=== PATIENT | male | born 1965 | race Caucasian/White ===

== ENCOUNTER 2017-09-24 08:16 | Day surgery (SDC) | payer OTHER ==
[2017-09-21 08:25] VITALS: BMI 24.3
--- NOTE | 2017-09-24 06:47 | HP ---
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 The patient subsequently underwent inductive chemotherapy as well as full course radiation to the primary lesion as well as the right neck. He has done well and has had no somatic complaints. Recent examination in the office was negative for any neck masses. It is recommended the patient be returned to surgery for a re-examination and recheck, and also a re-biopsy of the primary lesion site. PAST MEDICAL HISTORY: Reveals he has no known allergies to medications. MEDICATIONS: Current medications include losartan and Claritin. REVIEW OF SYSTEMS: Review of systems is positive for hypertension and the remainder of the review of systems is essentially unremarkable. PREVIOUS SURGERIES: Include a suspension microlaryngoscopy x2, triple endoscopy, colonoscopy, tonsillectomy, adenoidectomy, excision of mucocele of the right lower lip and left herniorrhaphy. The patient is also on Protonix for GERD (gastroesophageal reflux disorder). PHYSICAL EXAMINATION: The patient is a very pleasant 52-year-old male who was alert and cooperative. HEENT EXAMINATION: Patient is normocephalic. Tympanic membranes normal. Middle ear space is free of any fluid or infection. Pupils equal, round, react to light and accommodation. Extraocular movements within normal limits. Intranasal examination reveals moderate to severe septal deviation with compensatory hypertrophy of inferior turbinates and a moderate amount of mucus on the mucous membranes and draining down the posterior pharynx. Examination of the oropharynx: Palpation of the neck and cranial nerves 2 through 12 are all within normal limits. CHEST AND CARDIOVASCULAR: Both lung aguilera are clear to percussion and auscultation. The patient is in regular sinus rhythm. S1 and S2 are present without evidence of any murmurs S3s or S4s. Peripheral pulses are bilaterally symmetrical and within normal limits. ABDOMEN: There is no evidence the masses megaly or tenderness. The abdomen is soft. Skin is unremarkable. MUSCULOSKELETAL AND NEUROLOGICAL: Within normal limits. Rectal exam is deferred at this time because the patient has this done on a regular basis at his family physician's office. The remainder of physical exam is unremarkable. IMPRESSION: Squamous cell carcinoma of the right true vocal cord, status post full course radiation. PLAN: The patient is scheduled undergo a suspension microlaryngoscopy and possible biopsy of the right true vocal cord under anesthesia in the a.m. Attention RNs in the pre-surgical area: I have not ordered any pre-surgical prophylactic antibiotics for this patient. If the pharmacy department sends any pre- surgical prophylactic antibiotics to the pre-surgical area for this patient, that order should be cancelled and the medication returned to the Pharmacy and make sure that the patient's account is credited appropriately. The only medication that I have ordered for this patient receives 1000 mg of Ofirmev to be given once an intravenous line has been established. I have discussed the risks, benefits and alternative therapies for the above-mentioned procedure and for both sedation/analgesia as well as necessary blood product administration, if indicated, as they pertain to this patient. The patient has indicated his or her understanding and acceptance of the risks and procedures discussed. MMMICHELLE / TEO: [id number] /
[~2017-09-24 08:16] MED LIST: DEXAMETHASONE SOD PHOSPHATE 10 MG/ML 1 ML VIAL IV ONE; LACTATED RINGERS 1,000 ML IV SCH; LIDOCAINE 1% 20 ML VIAL (10MG/ML) FOR IV START INTRADERMA PRN; MORPHINE SULFATE 2 MG/ML SYRINGE IV PRN; ONDANSETRON 4 MG/2 ML VIAL IVP ONE; Pre Op ABX Message 1 EACH MISC MISCELLANE ONE
[2017-09-24] MEDS ORDERED: ACETAMINOPHEN IV (For NPO) 1,000 MG in EMPTY BAG 1 BAG IVPB ONE (09:45)
[2017-09-24] MEDS ORDERED: ePHEDrine SULFATE/0.9% NACL/PF 50 MG/5 ML SYRINGE IV ONE (10:30)
[2017-09-24] MEDS ORDERED: PROPOFOL 10 MG/ML 20 ML VIAL IV ONE (10:30)
[2017-09-24] MEDS ORDERED: NEOSTIGMINE 1 MG/ML 10 ML VIAL ONE (10:30)
[2017-09-24] MEDS ORDERED: LIDOCAINE 1% INJ 10MG/ML (20 ML MDV) ONE (10:30)
[2017-09-24] MEDS ORDERED: MIDAZOLAM 2 MG/2 ML VIAL ONE (10:30)
[2017-09-24] MEDS ORDERED: SUCCINYLCHOLINE CHLORIDE 100 MG/5 ML SYR IV ONE (10:30)
[2017-09-24] MEDS ORDERED: ROCURONIUM BROMIDE 10 MG/ML 10 ML VIAL IV ONE (10:30)
[2017-09-24] MEDS ORDERED: GLYCOPYRROLATE 0.2 MG/ML 2 ML VIAL ONE (10:30)
[2017-09-24 11:39] VITALS: RESP 18; TEMP 97
[2017-09-24 12:12] VITALS: BP 128/94; PULSE 83
--- NOTE | 2017-09-25 04:00 | OP ---
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 ANESTHESIA: General. OPERATIVE PROCEDURE: Suspension microlaryngoscopy. OPERATING SURGEON: Dr. Adame COMPLICATIONS: None. OPERATIVE PROCEDURE: The patient was placed on the operating table in the supine position and after uneventful induction and endotracheal intubation, satisfactory general anesthesia was obtained. Next, the patient was draped in usual and customary fashion. Following this, a mouth guard was placed to protect the patient's upper teeth and a 4 x 4 was used to protect the patient's lower teeth. This was done because on the previous surgery, the patient had a chipped tooth. Unfortunately, this patient has a significantly receding chin, which makes access to the hypopharynx extremely difficult. The anesthesia department uses a so-called Maysel scope to intubate the patient with some difficulty. Next, the small narrow anterior commissure the laryngoscope was introduced into the oropharynx and the entire hypopharynx including the right and left piriform sinuses, base of tongue, and epiglottis were inspected and found to be free of any suspicious disease. The tip of the laryngoscope was very carefully advanced into the laryngeal introitus with attention taken to make sure that none of the patient's teeth were impacted by the instrument. With some significant difficulty, the true vocal cords were visualized and the Lewy apparatus was attached to the laryngoscope and was suspended on the patient's chest. Next, using the Zeiss operating microscope one could see that both true vocal cords appeared to be completely normal. There was no evidence of any suspicious lesions, polyps, nodules, plaques, etc. Because of this, it was elected not to do any biopsies. At this point, the procedure was terminated. The patient was given Decadron intraoperatively to reduce any postoperative edema. The procedure was terminated. There were no intraoperative complications. Patient tolerated procedure well and was returned to recovery room in satisfactory condition. MMODL / IJN: [id number] /
== END 2017-09-24 13:20 | disposition home or self-care (01) ==
LOC: OR 08:16
PROVIDERS: ATTEND Otolaryngology
DX: C32.0 Malignant neoplasm of glottis (principal); K21.9 Gastro-esophageal reflux disease without esophagitis; I10 Essential (primary) hypertension; Z79.899 Other long term (current) drug therapy
CPT/HCPCS: 31526; J2250; J2710; J2001; J0131; J0330; J2704

== ENCOUNTER 2019-10-10 10:05 | Day surgery (SDC) | payer OTHER ==
[2019-10-07 12:26] VITALS: BMI 26.6
--- NOTE | 2019-10-10 01:09 | HP ---
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 He has undergone inductive chemotherapy as well as full course radiation to the primary lesion and also to the right neck. He has done well on his follow-up visits and on his recent most recent follow-up visit had no somatic complaints. The patient was advised that it is routine to take the patient back surgery and take a direct visualization and possible biopsy under general anesthesia for his final followup. PAST MEDICAL HISTORY: Past medical history reveals he has no known allergies to medications. His only current medications include losartan and Claritin. REVIEW OF SYSTEMS: Review of systems is positive for hypertension and the remainder of review of systems is essentially unremarkable. PREVIOUS SURGERIES: Previous surgeries include suspension microlaryngoscopy x3, triple endoscopy, colonoscopy, adenoidectomy, tonsillectomy, excision of mucocele of the right lower lip and left herniorrhaphy. The patient's current medications also includes Protonix for gastroesophageal reflux disorder. PHYSICAL EXAMINATION: This patient is a 54-year-old male who is alert and cooperative. HEENT EXAMINATION: Patient is normocephalic. Tympanic membranes are normal. Middle ear spaces are free of any fluid or infection. Pupils equal, round, react to light and accommodation. Extraocular movements within normal limits. Intranasal examination reveals moderate septal deviation with compensatory hypertrophy of the inferior turbinates and a moderate amount of mucus on the mucous membranes and draining down the posterior pharynx. Examination of oropharynx, cranial nerves 2 through 12 and the remainder of the head and neck exam are within normal limits. The remainder of the head and neck exam is completely unremarkable. CHEST/CARDIOVASCULAR: Both lung aguilera are clear to percussion and auscultation. The patient is in regular sinus rhythm. S1 and S2 are present without evidence any murmurs, S3s or S4. Peripheral pulses are bilaterally symmetrical. ABDOMEN: There is no evidence of any masses, megaly or tenderness. The abdomen is soft. Skin is unremarkable. Musculoskeletal and neurological are within normal limits. RECTAL EXAM: The rectal exam is deferred at this time because the patient has this done on a regular basis at his family physician's office. The remainder of physical exam is unremarkable. 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 PLAN: The patient is scheduled undergo a suspension microlaryngoscopy with possible biopsy of the right true vocal cord under general anesthesia in a.m. ATTENTION RNS IN THE PRE-SURGICAL AREA: I have not ordered any pre-surgical prophylactic antibiotics or other medications for this patient. If the pharmacy department sends any pre-surgical prophylactic antibiotics to the pre-surgical area for this patient, please cancel that order, return the medication to the pharmacy department and make sure that the patient's account is credited appropriately. I have discussed the risks, benefits and alternative therapies for the above-mentioned procedure and for both sedation/analgesia as well as necessary blood product administration, if indicated, as they pertain to this patient. The patient has indicated his or her understanding and acceptance of the risks and procedures discussed. MMMILYL / TAMARN: [id number] /
[~2019-10-10 10:05] MED LIST changes: +LIDOCAINE 1% (10MG/ML) FOR IV START INTRADERMA PRN; -LIDOCAINE 1% 20 ML VIAL (10MG/ML) FOR IV START INTRADERMA PRN; -MORPHINE SULFATE 2 MG/ML SYRINGE IV PRN
[2019-10-10] MEDS ORDERED: ONDANSETRON 4 MG/2 ML VIAL ONE (10:21)
[2019-10-10] MEDS ORDERED: LACTATED RINGERS 1,000 ML IV ONE (10:34)
[2019-10-10] MEDS ORDERED: SUCCINYLCHOLINE CHLORIDE 100 MG/5 ML SYR IV ONE (11:41)
[2019-10-10] MEDS ORDERED: PROPOFOL 10 MG/ML 20 ML VIAL IV ONE ×2 (11:41)
[2019-10-10] MEDS ORDERED: LIDOCAINE 1% INJ 10MG/ML (20 ML MDV) ONE (11:41)
[2019-10-10] MEDS ORDERED: DEXAMETHASONE SOD PHOSPHATE 10 MG/ML 1 ML VIAL ONE (11:41)
[2019-10-10 12:37] VITALS: RESP 16; TEMP 97
[2019-10-10 13:34] VITALS: BP 113/74; PULSE 69
--- NOTE | 2019-10-11 02:37 | OP ---
OPERATIVE REPORT DATE OF SERVICE: 10/10/2019. 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 ANESTHESIA: General. OPERATIVE PROCEDURE: Suspension microlaryngoscopy. OPERATING SURGEON: Jermaine Adame M.D. COMPLICATIONS: None. OPERATIVE PROCEDURE: The patient was placed on the operating table in supine position and after uneventful induction endotracheal intubation, satisfactory general anesthesia was obtained. Next, the patient was draped in usual and customary fashion following which, using an anterior commissure laryngoscope this was introduced into the patient's oropharynx after application of a tooth guard. Care was taken to avoid any injury to the patient's teeth, especially since the patient is noted to have a plastic partial cap on one of his teeth. The entire hyper hypopharynx including the right and left piriform sinus, vallecula, base of tongue and epiglottis were inspected and found to be free of any suspicious lesions. Next, the tip of the laryngoscope was positioned at the laryngeal introitus and the Lewy apparatus was attached to the handle of the laryngoscope. The laryngoscope was suspended on the patient's chest. Next, using the Zeiss operating microscope and under direct magnified visualization, inspection of both the right and left true vocal cord and all of the laryngeal structures did not reveal any suspicious lesions. One could see the band of scar tissue left because of the effects of the patient's radiation treatments. The patient was given 10 mg of Decadron intraoperatively to reduce any laryngeal edema. At this point the procedure was terminated. There were no intraoperative complications. The patient tolerated the procedure well and was returned to the recovery room in satisfactory condition. MMODL / IJN: [id number] /
== END 2019-10-10 13:42 | disposition home or self-care (01) ==
LOC: OR 10:05
PROVIDERS: ATTEND Otolaryngology
DX: Z08 Encounter for follow-up examination after completed treatment for malignant neoplasm (principal); Z85.21 Personal history of malignant neoplasm of larynx; Z92.3 Personal history of irradiation; Z92.21 Personal history of antineoplastic chemotherapy; I10 Essential (primary) hypertension; K21.9 Gastro-esophageal reflux disease without esophagitis; I34.1 Nonrheumatic mitral (valve) prolapse; Z79.899 Other long term (current) drug therapy; Z90.89 Acquired absence of other organs; Z98.890 Other specified postprocedural states
CPT/HCPCS: 31526; J1100; J2405; J2001; J0330; J2704